=== PATIENT | female | born 1940 | race Caucasian/White ===

== ENCOUNTER → 2019-04-03 | Outpatient (CLI) | payer MEDICARE, OTHER ==
[~2019-04-03] MED LIST: DOCU100C33 PO; ERTA1VIA4 IV; LABE200T6 PO; LOPE2CAP PO; LOSA50TA14 PO; OMNIPAQUE 350 MG/ML, 100ML BOTTLE ONE; OXYC5TAB3 PO; PANT20TA2 PO; PIPE4.5F2 IV; VANC1PIG IV; potassium PO
== END | disposition home or self-care (01) ==
LOC: CFH 11:55
PROVIDERS: ATTEND Internal Medicine Infectious Disease
DX: K85.90 Acute pancreatitis without necrosis or infection, unspecified (principal); K65.1 Peritoneal abscess
CPT/HCPCS: 74177; Q9967

== ENCOUNTER 2019-06-27 11:15 | Day surgery (SDC) | payer MEDICARE, OTHER ==
[~2019-06-27] VITALS: Ht 157.5 cm; Wt 51.4 kg
[~2019-06-27 11:15] MED LIST changes: +LOPE1TAB4 PO; +LOSA100T2 PO; +MULT-658 PO; +OMEP40CA42 PO; -OMNIPAQUE 350 MG/ML, 100ML BOTTLE ONE; +POTA20TA14 PO
[2019-06-27] MEDS ORDERED: LACTATED RINGERS 1,000 ML IV SCH (11:43)
[2019-06-27 11:50] VITALS: BP 146/88
[2019-06-27] MEDS ORDERED: CHLORHEXIDINE 15 ML UDC MM ONE (12:00)
[2019-06-27] MEDS ORDERED: PROPOFOL 10 MG/ML, 20ML ONE (13:15)
[2019-06-27] MEDS ORDERED: NEOSTIGMINE 1 MG/ML, 10ML ONE (13:15)
[2019-06-27] MEDS ORDERED: GLYCOPYRROLATE 0.2MG/1ML, 5ML ONE (13:15)
[2019-06-27] MEDS ORDERED: ROCURONIUM 10 MG/ML,10ML ONE (13:15)
[2019-06-27] MEDS ORDERED: FENTANYL PF 100 MCG/2ML ONE (13:33)
[2019-06-27] MEDS ORDERED: ONDANSETRON 2MG/ML, 2ML IV PRN (14:00)
[2019-06-27] MEDS ORDERED: ACETAMINOPHEN 325 MG TABLET PO PRN (14:00)
[2019-06-27] MEDS ORDERED: FENTANYL PF 100 MCG/2ML IV PRN (14:00)
[2019-06-27] MEDS ORDERED: OXYcodone 5 MG/5 ML ORAL.SOL UDC PO PRN (14:00)
[2019-06-27] MEDS ORDERED: LABETALOL 5MG/ML, 20ML IV PRN (14:00)
[2019-06-27] MEDS ORDERED: hydrALAzine 20 MG/ML, 1ML IV PRN (14:00)
[2019-06-27] MEDS ORDERED: ACETAMINOPHEN 650 MG/20.3 ML UDC ONE (14:56)
== END 2019-06-27 15:55 | disposition home or self-care (01) ==
LOC: OUT 11:15
PROVIDERS: ATTEND Internal Medicine Geriatric Medicine
DX: K86.89 Other specified diseases of pancreas (principal); I10 Essential (primary) hypertension; M19.90 Unspecified osteoarthritis, unspecified site; Z72.89 Other problems related to lifestyle; Z85.3 Personal history of malignant neoplasm of breast; Z88.8 Allergy status to other drugs, medicaments and biological substances; Z90.13 Acquired absence of bilateral breasts and nipples
CPT/HCPCS: 43239; 43242; 88172; 88173; 88305; 88307; 93005; J2704; J2710; J3010; J7120

== ENCOUNTER 2019-10-10 11:09 | Day surgery (SDC) | payer MEDICARE, OTHER ==
[~2019-10-10] VITALS: Ht 154.9 cm; Wt 48.6 kg
[2019-10-10] MEDS ORDERED: CHLORHEXIDINE 15 ML UDC ONE (11:20)
[2019-10-10 11:46] VITALS: BP 126/88
[2019-10-10] MEDS ORDERED: LACTATED RINGERS 1,000 ML IV SCH (11:57)
[2019-10-10] MEDS ORDERED: CHLORHEXIDINE 15 ML UDC MM STA (12:00)
[2019-10-10] MEDS ORDERED: LIPA1CAP45 PO (12:05)
[2019-10-10] MEDS ORDERED: FENTANYL PF 100 MCG/2ML ONE ×2 (13:20→14:18)
[2019-10-10] MEDS ORDERED: SUCCINYLCHOLINE 20 MG/ML, 10ML ONE (13:23)
[2019-10-10] MEDS ORDERED: ONDANSETRON 2MG/ML, 2ML ONE (13:23)
[2019-10-10] MEDS ORDERED: PROPOFOL 10 MG/ML, 20ML ONE (13:23)
[2019-10-10] MEDS ORDERED: DEXAMETHASONE 4 MG/ML, 1ML ONE (13:23)
[2019-10-10] MEDS: FENTANYL PF 100 MCG/2ML IV PRN ×3 (14:20→14:36)
[2019-10-10] MEDS ORDERED: PROMETHAZINE 25 MG/ML, 1ML IVPush PRN (14:30)
[2019-10-10] MEDS ORDERED: OXYcodone 5 MG/5 ML ORAL.SOL UDC PO PRN (14:30)
[2019-10-10] MEDS ORDERED: ONDANSETRON 2MG/ML, 2ML IVPush PRN (14:30)
[2019-10-10] MEDS ORDERED: ACETAMINOPHEN 325 MG TABLET PO PRN (14:30)
[2019-10-10] MEDS ORDERED: PROMETHAZINE 25 MG SUPP PR PRN (14:30)
[2019-10-10] MEDS ORDERED: ACETAMINOPHEN 650 MG/20.3 ML UDC ONE (14:32)
[2019-10-10] MEDS ORDERED: OXYcodone 5 MG/5 ML ORAL.SOL UDC ONE (14:32)
== END 2019-10-10 16:30 | disposition home or self-care (01) ==
LOC: OUT 11:09
PROVIDERS: ATTEND Internal Medicine
DX: K86.89 Other specified diseases of pancreas (principal); Z11.59 Encounter for screening for other viral diseases; K92.89 Other specified diseases of the digestive system; K86.1 Other chronic pancreatitis; K90.9 Intestinal malabsorption, unspecified; I70.0 Atherosclerosis of aorta; I10 Essential (primary) hypertension; M19.90 Unspecified osteoarthritis, unspecified site; Z79.891 Long term (current) use of opiate analgesic; Z79.899 Other long term (current) drug therapy; Z85.3 Personal history of malignant neoplasm of breast; Z88.5 Allergy status to narcotic agent; Z88.8 Allergy status to other drugs, medicaments and biological substances; Z90.13 Acquired absence of bilateral breasts and nipples; Z90.49 Acquired absence of other specified parts of digestive tract; Z90.710 Acquired absence of both cervix and uterus; Z98.890 Other specified postprocedural states; Z82.3 Family history of stroke; Z83.3 Family history of diabetes mellitus; Z82.49 Family history of ischemic heart disease and other diseases of the circulatory system; Z80.9 Family history of malignant neoplasm, unspecified
CPT/HCPCS: 36415; 43242; 87635; 88172; 88173; 88177; 88307; 93005; J0330; J1100; J2405; J2704; J3010